=== PATIENT | female | born 1955 | race Caucasian/White ===

== ENCOUNTER 2020-06-01 11:23 | Emergency (ER) | payer OTHER ==
[~2020-06-01] VITALS: Ht 167.6 cm; Wt 77.1 kg
--- NOTE | 2020-06-01 11:11 | ER.PDOC ---
General Stated Complaint: DYSPNEA Time seen by MD: 11:11 Source: patient, EMS Exam Limitations: no limitations History of Present Illness Initial Comments This 64-year-old white female is down here visiting family and woke up this morning with nausea vomiting somewhere between 2 and 3 in the morning. She has vomited 3 times in her early early this morning. Since then she just had nausea. Patient lives in [place] and she had planned to go home today. Because of her nausea she was not sure she would be able to make it. Patient was brought in via EMS with a report of COPD exacerbation. However, patient states this is her normal lungs and she is not here for her shortness of breath that is her chronic condition. Severity: mild Activities at Onset: sleep Prior Episodes/Possible Cause: other (Again patient is here for her acute nausea vomiting and vomiting. Her COPD is normal baseline for her) Modifying Factors: improves with albuterol nebulizer Associated Symptoms: cough Prior symptoms/Treatment: Similar symptoms previous Past Medical History Medical History: coronary artery disease, COPD, diabetes, hypertension Surgical History: other (Patient has multiple stents in her heart) Social History Smoking: less than 1 pack/day Alcohol Use: occassionally (Patient has a history of alcohol abuse. States that she is now just occasionally drinking.) Drug Use: none Reviewed Nursing Reviewed: Vital Signs, Abn. Noted, Nursing Assessment Review of Systems Respiratory: cough, shortness of breath, wheezing Gastrointestinal: nausea, vomiting All Other Systems: Reviewed and Negative Physical Exam General Appearance: No Apparent Distress, WD/WN HEENT: PERRL/EOMI, Normal ENT Inspection, TMs Normal, Pharynx Normal Neck: Non-Tender, Full Range of Motion Respiratory: chest non-tender, no respiratory distress, decreased breath sounds, accessory muscle use, rales, wheezing, expiration Cardiovascular: Normal Peripheral Pulses, Regular Rate, Rhythm, No Edema, No Gallop, No JVD, No Murmur Gastrointestinal: Normal Bowel Sounds, No Organomegaly, No Pulsatile Mass, Non Tender, Soft Extremities: Normal Range of Motion, Non-Tender, Normal Inspection, No Pedal Edema, No Calf Tenderness, Normal Capillary Refill 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, No Motor/Sensory Deficits, Alert, Normal Mood/Affect, Oriented x 3 Skin: Normal Color, Warm/Dry Lymphatic: No Adenopathy Results/Orders Results/Orders Orders - SONY LUND MD Cbc With Auto Diff (06/01/20 11:33) Comprehensive Metabolic Panel (06/01/20 11:33) Amylase (06/01/20 11:33) Lipase (06/01/20 11:33) Urinalysis (06/01/20 11:33) 0.9 % Sodium Chloride (Ns 1000ml) (06/01/20 11:34) Ondansetron Hcl/Pf (Zofran) (06/01/20 11:34) 0.9 % Sodium Chloride (Ns 1000ml) (06/01/20 11:35) Ondansetron Hcl/Pf (Zofran) (06/01/20 11:35) Vital Signs Date Time Temp Pulse Resp B/P (MAP) Pulse Ox O2 Delivery O2 Flow Rate FiO2 06/01/20 12:14 75 22 139/73 (95) 95 Nasal Canula 3.00 06/01/20 11:32 98.6 84 22 118/72 (87) 96 Nasal Canula 3.00 06/01/20 11:32 98.6 84 22 06/01/20 11:25 98.6 84 22 96 Administered Medications Medications (Trade) Dose Ordered Sig/Geovanna Route PRN Reason Start Time Stop Time Status Last Admin Dose Admin Ondansetron HCl (Zofran) 4 mg STAT STAT IV 06/01/20 11:34 06/01/20 11:35 DC 06/01/20 11:40 4 MG Sodium Chloride 1,000 ml @ 250 mls/hr Q4H STAT IV 06/01/20 11:34 06/01/20 15:33 06/01/20 11:40 250 MLS/HR Laboratory Tests Test 06/01/20 11:38 White Blood Count 12.4 10^3/uL (4.5-11.0) H Red Blood Count 5.35 10^6/uL (4.00-5.20) H Hemoglobin 15.7 g/dL (12.0-15.0) H Hematocrit 50.0 % (36.0-46.0) H Mean Corpuscular Volume 93.5 fL (78-100) Mean Corpuscular Hemoglobin 29.3 pg (26-34) Mean Corpuscular Hemoglobin Concent 31.4 g/dL (33-36.5) L Red Cell Distribution Width 13.8 % (11.5-14.5) Platelet Count 262 10^3/uL (150-400) Mean Platelet Volume 9.4 fL (7.8-11.0) Neutrophils (%) (Auto) 81.8 % (41.0-85.0) Lymphocytes (%) (Auto) 13.2 % (24.0-44.0) L Monocytes (%) (Auto) 3.4 % (5.0-12.0) L Neutrophils # (Auto) 10.1 10^3/uL (1.8-7.7) H Lymphocytes # (Auto) 1.64 10^3/uL1 (1.0-4.8) Monocytes # (Auto) 0.4 10^3/uL (0.3-0.8) Absolute Immature Granulocyte (auto 0.06 10^3 u/L (0-2) Absolute Eosinophils (auto) 0.1 10^3/uL (0.0-0.2) Immature Granulocytes % 0.50 % (0.00-0.50) Eosinophils % 0.9 % (0.0-5.0) Basophils % 0.2 % (0.0-0.2) Basophils # 0.0 10^3/uL (0.0-0.1) Sodium Level 142 mmol/L (132-145) Potassium Level 4.2 mmol/L (3.6-5.2) Chloride Level 102.0 mmol/L (96-109) Carbon Dioxide Level 35.0 mmol/L (20.0-32) H Anion Gap 9.2 Blood Urea Nitrogen 24 mg/dL (7-18) H Creatinine 1.31 mg/dL (0.59-1.40) Estimated GFR () 49.8 (>/=60) Est GFR (CKD-EPI)(Non-Afr [place]) 41.1 (>/=60) BUN/Creatinine Ratio 18.0 Glucose Level 208 mg/dL (70-110) H Calcium Level 9.0 mg/dL (8.4-10.5) Total Bilirubin 0.6 mg/dL (0.2-1.0) Aspartate Amino Transferase (AST) 13 U/L (0-35) Alanine Aminotransferase (ALT) 22 U/L (12-78) Alkaline Phosphatase 126 U/L (50-136) Total Protein 7.4 g/dL (6.4-8.2) Albumin 3.2 g/dL (3.4-5.0) L Globulin 4.2 Albumin/Globulin Ratio 0.761 Amylase Level 41 U/L (25-115) Lipase 113 U/L (114-286) L ER DEPART Departure Time of Disposition: 13:01 Disposition: 01 HOME, SELF-CARE Impression: Primary Impression: Nausea & vomiting Additional Impressions: COPD (chronic obstructive pulmonary disease) Hypoxia Condition: Stable Comments Zofran 4mg ODT, one po tid prn N/Vm #20 Duration or Time Spent with Pa: 25m Problem Qualifiers SONY LUND MD Jun 01, 2020 11:11
[2020-06-01 11:25] VITALS: BP 118/72
[2020-06-01 11:32] VITALS: BP 118/72
[2020-06-01] MEDS ORDERED: ZOFRAN IV STA (11:34)
[2020-06-01] MEDS ORDERED: NS 1000ML 1,000 ML IV STA (11:34)
[2020-06-01] MEDS ORDERED: NS 1000ML 1,000 ML ONE (11:35)
[2020-06-01] MEDS ORDERED: ZOFRAN ONE (11:35)
[2020-06-01 11:43] LABS: BASOPHIL % 0.2 % (0.0-0.2); EOSINOPHIL # 0.1 10^3/uL (0.0-0.2); EOSINOPHIL % 0.9 % (0.0-5.0); LYMPHOCYTES # 1.64 10^3/uL1 (1.0-4.8); LYMPHOCYTES % 13.2 % (24.0-44.0); MEAN CORP HGB 29.3 pg (26-34); MONOCYTES # 0.4 10^3/uL (0.3-0.8); MONOCYTES % 3.4 % (5.0-12.0); NEUTROPHIL # 10.1 10^3/uL (1.8-7.7); NEUTROPHILS % 81.8 % (41.0-85.0); PLATELET COUNT 262 10^3/uL (150-400); RED CELL DISTRIBUTION WIDTH 13.8 % (11.5-14.5)
[2020-06-01 12:14] VITALS: BP 139/73
[2020-06-01 12:55] LABS: BILIRUBIN,URINE NEGATIVE (NEGATIVE); UA COLOR YELLOW (YELLOW)
[2020-06-01 12:56] LABS: UROBILINOGEN,URINE NORMAL (NEGATIVE)
== END 2020-06-01 13:20 | disposition home or self-care (01) ==
LOC: ER 11:23
DX: J44.1 Chronic obstructive pulmonary disease with (acute) exacerbation (principal); R11.2 Nausea with vomiting, unspecified; R09.02 Hypoxemia; I25.10 Atherosclerotic heart disease of native coronary artery without angina pectoris; I10 Essential (primary) hypertension; F17.210 Nicotine dependence, cigarettes, uncomplicated; E11.9 Type 2 diabetes mellitus without complications; Z79.899 Other long term (current) drug therapy
CPT/HCPCS: 36415; 80053; 81000; 82150; 83690; 85025; 96361; 96374; 99284; J2405; J7030